=== PATIENT | female | born 1950 | race Caucasian/White ===

== ENCOUNTER → 2018-06-17 09:07 | Outpatient (CLI) | payer MEDICARE, BC, SELFPAY ==
[2018-06-17 10:17] LABS: Hemoglobin A1C% w Est Avg Glu 5.4 % (4.0-6.0)
[2018-06-17 10:27] LABS: Cholesterol 228 mg/dL (140-199); HDL Cholesterol 77 mg/dL (40-60); LDL Cholesterol Calculated 130 mg/dL (<100); Triglycerides 104 mg/dL (35-150)
[2018-06-17 10:38] LABS: Vitamin D 25 Hydroxy (D3) 39.9 ng/mL (30.0-100.0)
== END ==
PROVIDERS: Visit Provider Physician Assistant
DX: M81.0 Age-related osteoporosis without current pathological fracture (principal); R73.03 Prediabetes; E78.5 Hyperlipidemia, unspecified
CPT/HCPCS: 36415; 80061; 82306; 83036

== ENCOUNTER → 2018-12-07 14:14 | Outpatient (CLI) | payer MEDICARE, BC, SELFPAY ==
--- NOTE | 2018-12-07 | DI.CT.S_ITS ---
PROCEDURE: CT ABDOMEN PELVIS W CON INDICATIONS: RIGHT LOWER QUADRANT PAIN TECHNIQUE: After the administration of oral and intravenous contrast, 5 mm thick sections acquired from the diaphragms to the symphysis. 5 mm thick coronal and sagittal reformats were performed. For radiation dose reduction, the following was used: automated exposure control, adjustment of mA and/or kV according to patient size. COMPARISON: None. FINDINGS: Image quality: Excellent. ABDOMEN: Lung bases: There is mild linear scarring in the lung bases. Heart size is normal. Solid organs: There are 2 small cysts within the right hepatic lobe as well as multiple additional small low-density foci in the liver which are too small to characterize but likely represent cysts. Gallbladder is partially distended without calcified gallstones. Biliary system is non-dilated. Pancreas enhances normally. Spleen is normal in size and enhancement. No adrenal nodules. Kidneys demonstrate no hydronephrosis. Peritoneum and bowel: Stomach and small bowel loops are normal in caliber and wall thickness. The appendix is normal in appearance. There is colonic diverticulosis with diverticular inflammatory changes in the proximal sigmoid colon. There is associated segmental colonic wall thickening with pericolonic fat stranding. No macroscopic free air or diverticular abscess. No free fluid. No free fluid or air. Nodes and vessels: No retroperitoneal or mesenteric adenopathy. Aorta and inferior vena cava are normal in caliber. Miscellaneous: No ventral hernias. PELVIS: Genitourinary: Bladder wall thickness is normal. Miscellaneous: No inguinal hernias or adenopathy. Bones: No suspicious bony lesions. No vertebral body compression fractures. IMPRESSION: 1. Sigmoid diverticulitis without evidence of macroscopic free air or diverticular abscess. 2. No evidence of appendicitis. Findings discussed with Dr. Ortiz on 12/07/18 at 4:05 PM. Dictated by: Lucian Larsen M.D. on 12/07/2018 at 15:45 Approved by: Lucian Larsen M.D. on 12/07/2018 at 16:06
[2018-12-07 14:39] LABS: Add Manual Diff / Slide Review NO; Basophils Absolute Auto 100 /uL (0-100); Basophils Percent Auto 0.8 % (0-2); Eosinophils Absolute Auto 400 /uL (0-450); Eosinophils Percent Auto 3.2 % (2-4); Hematocrit 37.7 % (36-46); Hemoglobin 13.1 g/dL (12.0-16.0); Lymphocytes Absolute Auto 1900 /uL (1100-4500); Lymphocytes Percent Auto 16.9 % (25-40); Mean Corpuscular HGB Conc 34.7 % (30-36); Mean Corpuscular Volume 89.4 fL (80-100); Monocytes Absolute Auto 900 /uL (0-900); Monocytes Percent Auto 8.2 % (3-14); Neutrophils Absolute Auto 8100 /uL (1500-7000); Neutrophils Percent Auto 70.9 % (50-75); Platelet Count 271 X10^3/uL (150-400); Red Blood Cell Count 4.22 X10^6/uL (4.0-5.2); Red Cell Distribution Width 13.5 % (11.6-14.8); White Blood Cell Count 11.5 X10^3/uL (4.5-11.0)
[2018-12-07 14:52] LABS: Blood Urea Nitrogen 13 mg/dL (7-17); Calcium 9.7 mg/dL (8.4-10.2); Carbon Dioxide 26 mmol/L (22-32); Chloride 98 mmol/L (98-107); Estimated Glomerular Filt Rate > 60.0 mL/min (>60); Glucose 100 mg/dL (80-110); HEMOLYSIS < 15 (0-50); Potassium 4.4 mmol/L (3.4-5.1); Sodium 133 mmol/L (137-145)
== END ==
PROVIDERS: PCP Physician Assistant; Visit Provider Internal Medicine
DX: R10.31 Right lower quadrant pain (principal); K76.89 Other specified diseases of liver; K57.32 Diverticulitis of large intestine without perforation or abscess without bleeding
CPT/HCPCS: 36415; 74177; 80048; 85025; Q9967

== ENCOUNTER → 2020-04-10 14:49 | Outpatient (CLI) | payer MEDICARE, BC, SELFPAY ==
--- NOTE | 2020-04-10 | DI.RAD.S_ITS ---
PROCEDURE: XR CERVICAL SPINE 2V OR 3V INDICATIONS: CERVICALGIA TECHNIQUE: 3 view(s) of the cervical spine were acquired. 4 images. COMPARISON: None. FINDINGS: Bones: No fractures or dislocations to the C7 level. The lateral masses of C1 appear intact on the odontoid view. No suspicious bony lesions. Soft tissues: No prevertebral soft tissue swelling. IMPRESSION: Mild to moderate degenerative change of the cervical spine. Dictated by: Parker Pagan M.D. on 04/10/2020 at 15:41 Approved by: Parker Pagan M.D. on 04/10/2020 at 15:45
== END ==
PROVIDERS: PCP Physician Assistant; Referring Provider Student in an Organized Health Care Education/Training Program; Visit Provider Student in an Organized Health Care Education/Training Program
DX: M54.2 Cervicalgia (principal); M47.812 Spondylosis without myelopathy or radiculopathy, cervical region
CPT/HCPCS: 72040

== ENCOUNTER → 2020-06-18 11:43 | Outpatient (CLI) | payer MEDICARE, BC, SELFPAY ==
--- NOTE | 2020-06-18 | DI.MRI.S_ITS ---
PROCEDURE: MR CERVICAL SPINE WO CON INDICATIONS: other cervical disc degeneration TECHNIQUE: Noncontrast sagittal T1 spin echo and T2 fast spin echo, sagittal STIR, foraminal oblique sagittal T2 fast spin echo, and axial gradient echo or T2 fast spin echo through the cervical spine. COMPARISON: None. FINDINGS: Image quality: Excellent. Alignment and Curvature: Normal vertebral body alignment and height. Bone Marrow: No suspicious focal marrow signal abnormality or bone marrow edema Spinal Cord: Normal cord signal intensity. No syrinx. Regional Soft Tissues: Prevertebral and paraspinous soft tissues are unremarkable. C2-C3: No spinal canal or neural foraminal stenosis. C3-C4: Posterior disc osteophyte complex without spinal canal stenosis or mass effect upon the cord. Facet and uncovertebral hypertrophy contribute to trace neural foraminal narrowing. C4-C5: No spinal canal stenosis despite posterior disc osteophyte complex. Facet and uncovertebral hypertrophy contribute to mild bilateral neural foraminal stenosis. C5-C6: Facet and uncovertebral hypertrophy contributing to mild bilateral neural foraminal stenosis. Posterior disc-osteophyte complex without mass effect upon the cord or spinal canal stenosis. C6-C7: No spinal canal or neural foraminal stenosis. C7-T1: No spinal canal or neural foraminal stenosis. IMPRESSION: Mild degenerative changes in the midcervical spine. Dictated by: Hayes Hall M.D. on 06/18/2020 at 14:22 Approved by: Hayes Hall M.D. on 06/18/2020 at 14:24
== END ==
PROVIDERS: PCP Physician Assistant; Referring Provider Physician Assistant; Visit Provider Physician Assistant
DX: M50.30 Other cervical disc degeneration, unspecified cervical region (principal); M47.812 Spondylosis without myelopathy or radiculopathy, cervical region
CPT/HCPCS: 72141

== ENCOUNTER 2020-07-19 11:42 | Emergency (ER) | payer MEDICARE, BC, SELFPAY ==
--- NOTE | 2020-07-19 11:45 | DI.RAD.S_ITS ---
PROCEDURE: XR TOE LT MIN 2V INDICATIONS: pain, injury TECHNIQUE: Three views of the left toe(s) acquired. COMPARISON: None. FINDINGS: Bones: Spiral, mildly displaced, minimally laterally angulated fracture of the 4th proximal phalanx. No harshil dislocation but there is mild hammertoe deformity of the 2nd through 4th PIP joints.. No suspicious bony lesions. Soft tissues: No suspicious soft tissue densities. IMPRESSION: 1. Mildly angulated 4th proximal phalanx fracture. Dictated by: Vilma Rmaos M.D. on 07/19/2020 at 11:10 Approved by: Vilma Ramos M.D. on 07/19/2020 at 11:13
[2020-07-19 13:12] VITALS: BP 127/66; PULSE 89; TEMP 36.5; O2SAT 97
--- NOTE | 2020-07-19 14:50 | ED_ITS ---
HPI - Extremity Injury (Lower) <WILIAN Brown - Last Filed: 07/19/20 14:55> General Chief Complaint: Extremity Injury, Lower Stated Complaint: left foot injury Time Seen by Provider: 07/19/20 13:03 Source: patient Mode of arrival: Ambulatory Limitations: no limitations History of Present Illness HPI Narrative: The patient is a 62-year-old female nonsmoker who denies pertinent medical history who presents with a chief complaint of possible fracture to her left 4th toe. She states she accidentally kicked a bed what a hotel in [facility] at least 3 days ago or so. She states that her toe was angulated, she believes is dislocated and she tried to put it back in place. She is return emergency department nurse. She states she has been sushma taping it sounds, but she is concerned about a persistent fracture. She denies any significant pain, applied ice throughout the 1st few days, and used [id number] medications as needed and able. She denies any previous injuries to her left foot. Related Data Allergies Allergy/AdvReac Type Severity Reaction Status Date / Time meperidine [From DEMEROL] Allergy Unknown Verified 07/19/20 11:44 penicillin G [PENICILLIN G] Allergy Unknown Verified 07/19/20 11:44 Review of Systems <[facility] - Last Filed: 07/19/20 14:55> Review of Systems Narrative: GENERAL: Denies chills, fatigue, malaise, fever, sweats. HEENT: Denies sinus pain, ear pain, sore throat, difficulty swallowing, dizziness. RESPIRATORY: Denies dyspnea, cough, wheezing, hemoptysis, sputum. CARDIOVASCULAR: Denies chest pain, palpitations, orthopnea, edema, GASTROINTESTINAL: Denies nausea, vomiting, abdominal pain, diarrhea, constipation, melena. : Denies dysuria, frequency, incontinence, hematuria, urinary retention. MUSCULOSKELETAL: See HPI SKIN: See HPI NEUROLOGIC: Denies weakness, headache, numbness, change in speech, confusion, seizures, incoordination. PSYCHIATRIC: No concerning psychosocial issues. 12 point review of systems is negative except for those stated above Exam <[facility] - Last Filed: 07/19/20 14:55> Narrative Exam Narrative: GENERAL: This is a well-nourished, well-developed patient, no acute distress HEAD: Atraumatic. Normocephalic. No temporal or scalp tenderness. EYES: Pupils equal round and reactive. Extraocular motions intact. No scleral icterus. No injection or drainage. ENT: Nose without bleeding, purulent drainage or septal hematoma. Wearing a mask. Airway patent. NECK: Trachea midline. No JVD or lymphadenopathy. Supple, nontender, no meningeal signs. CARDIOVASCULAR: Regular rate RESPIRATORY: No cough. No increased respiratory effort. No accessory muscle use. EXTREMITIES: Skin exam as noted, she will flex and extend left 4th toe against light resistance. Positive left pedal pulses. Capillary refill less than 2 seconds all toes left foot. NEURO: AOx3. SKIN: Ecchymosis noted on top left foot. No laceration or abrasion noted. Initial Vital Signs Initial Vital Signs: Vital Signs Temperature 97.7 F 07/19/20 13:12 Pulse Rate 89 07/19/20 13:12 Blood Pressure 127/66 07/19/20 13:12 Pulse Oximetry 97 07/19/20 13:12 <Kay Sharpe MD - Last Filed: 07/19/20 17:45> Initial Vital Signs Initial Vital Signs: Vital Signs Temperature 97.7 F 07/19/20 13:12 Pulse Rate 89 07/19/20 13:12 Blood Pressure 127/66 07/19/20 13:12 Pulse Oximetry 97 07/19/20 13:12 Scores <RICHARD Brown - Last Filed: 07/19/20 14:55> GCS [place] coma scale eye opening: Spontaneous Anna coma scale verbal response: Orientated Anna coma scale motor response: Obey commands Anna coma scale total score: 15 Course <RICHARD Brown - Last Filed: 07/19/20 14:55> Orders Ordered: ED Orders 07/19/20 11:45 XR toe LT min 2V Stat Vital Signs Vital signs: Vital Signs - 8 hr 07/19/20 13:12 Temperature 97.7 F Pulse Rate 89 Blood Pressure 127/66 Pulse Oximetry 97 <Kay Sharpe MD - Last Filed: 07/19/20 17:45> Orders Ordered: ED Orders 07/19/20 11:45 XR toe LT min 2V Stat Vital Signs Vital signs: Vital Signs - 8 hr 07/19/20 13:12 Temperature 97.7 F Pulse Rate 89 Blood Pressure 127/66 Pulse Oximetry 97 [facility] - Extremity Injury (Lower) <WILIAN Brown - Last Filed: 07/19/20 14:55> Imaging Data Extremity x-ray #1: Radiologist's Impression: [address] [place] [id number] XRay Report Signed Patient: Es Hannah EMR#: [id number] : 2Acct:[id number] Age/Sex: 70 / FDate of Service: 07/19/20 Loc: ED Accession Number: [id number] Procedure: XR toe LT min 2V Ordering Provider: Kay Sharpe MD PROCEDURE: XR TOE LT MIN 2V INDICATIONS: pain, injury TECHNIQUE: Three views of the left toe(s) acquired. COMPARISON: None. FINDINGS: Bones: Spiral, mildly displaced, minimally laterally angulated fracture of the 4th proximal phalanx. No harshil dislocation but there is mild hammertoe deformity of the 2nd through 4th PIP joints.. No suspicious bony lesions. Soft tissues: No suspicious soft tissue densities. IMPRESSION: 1. Mildly angulated 4th proximal phalanx fracture. Dictated by: Vilma Ramos M.D. on 07/19/2020 at 11:10 Approved by: Vilma Ramos M.D. on 07/19/2020 at 11:13 [facility] Narrative Medical decision making narrative: The patient is a 62-year-old female who presents with a chief complaint of possibly fractured left 4th toe. Her x-ray does return with fracture. She is neurovascular intact her stay in the emergency department. I discussed at length rest ice compression elevation as well as [id number] pain medications as needed and able as well as follow- up with primary care provider in a few days. The patient declined to wait for sushma taping in the emergency department and left without discharge instructions. I did tell her to come back to emergency department for any acute concerns including decreased circulation to her toes. Patient has no questions or concerns upon discharge and states understanding return precautions as well as follow-up care, though did leave prior to discharge paperwork. Discharge Plan Departure Patient Disposition: Home Clinical Impression: Fracture of toe Qualifiers: Encounter type: initial encounter Toe: lesser toe Fracture type: closed Phalanx: proximal Fracture alignment: displaced Laterality: left Qualified Code(s): S92.512A - Displaced fracture of proximal phalanx of left lesser toe(s), initial encounter for closed fracture Discharge Date/Time: 07/19/20 14:02 Referrals: Maricel Vasquez PA-C [Primary Care Provider] - <Kay Sharpe MD - Last Filed: 07/19/20 17:45> Cosign ED Attending Cosignature Attestation: I was immediately available in the department for consultation throughout this patient's visit. I agree with documentation as above. Kay Sharpe MD
== END 2020-07-19 14:02 | disposition home or self-care (01) ==
PROVIDERS: Emergency Provider Nurse Practitioner Family; PCP Physician Assistant
DX: S92.512A Displaced fracture of proximal phalanx of left lesser toe(s), initial encounter for closed fracture (principal); W18.09XA Striking against other object with subsequent fall, initial encounter
CPT/HCPCS: 73660; 99281; 99283

== ENCOUNTER → 2020-09-06 08:24 | Outpatient (CLI) | payer MEDICARE, BC, SELFPAY ==
--- NOTE | 2020-09-06 | DI.RAD.S_ITS ---
PROCEDURE: XR FOOT LT MIN 3V INDICATIONS: DISPLACED FRACTURE OF PROX PHALANX OF LT LESSER TOES TECHNIQUE: 3 views of the foot were acquired. COMPARISON: [facility], CR, XR TOE LT MIN 2V, 07/19/2020, 11:35. [facility], CR, FOOT 3V LEFT, 02/14/2016, 12:24. FINDINGS: Bones: No acute fracture. Previously described fracture of the proximal phalanx of the 4th toe is healed. Achilles calcaneal spurs are present. There is a small plantar calcaneal spur. The interphalangeal joints of the toes have mild degenerative changes, unchanged. Soft tissues: No tibiotalar joint effusion. Achilles tendon appears normal. IMPRESSION: 1. Healed fracture of the proximal phalanx of the 4th toe. 3. Degenerative changes in the interphalangeal joints of the toes. Dictated by: Chris Daniels M.D. on 09/06/2020 at 8:49 Approved by: Chris Daniels M.D. on 09/06/2020 at 8:56
[2020-09-06 09:43] LABS: Add Manual Diff / Slide Review NO; Basophils Absolute Auto 0 /uL (0-100); Basophils Percent Auto 0.8 % (0-2); Eosinophils Absolute Auto 400 /uL (0-450); Eosinophils Percent Auto 6.7 % (2-4); Hematocrit 41.1 % (36-46); Hemoglobin 14.4 g/dL (12.0-16.0); Lymphocytes Absolute Auto 1000 /uL (1100-4500); Lymphocytes Percent Auto 17.8 % (25-40); Mean Corpuscular Hemoglobin 31.4 PG (26-34); Mean Corpuscular Volume 89.8 fL (80-100); Monocytes Absolute Auto 400 /uL (0-900); Neutrophils Absolute Auto 4000 /uL (1500-7000); Neutrophils Percent Auto 67.7 % (50-75); Platelet Count 315 X10^3/uL (150-400); Red Blood Cell Count 4.58 X10^6/uL (4.0-5.2); Red Cell Distribution Width 13.7 % (11.6-14.8); White Blood Cell Count 5.9 X10^3/uL (4.5-11.0)
[2020-09-06 10:06] LABS: Hemoglobin A1C% w Est Avg Glu 5.6 % (4.0-6.0)
[2020-09-06 10:12] LABS: Alanine Aminotransferase 29 IU/L (<35); Albumin 4.6 g/dL (3.5-5.0); Albumin Globulin Ratio 1.4 (1.0-2.8); Alkaline Phosphatase 72 U/L (38-126); Aspartate Aminotransferase 29 IU/L (14-36); BUN Creatinine Ratio 26.4 (6-22); Bilirubin Total 0.6 mg/dL (0.2-1.3); Blood Urea Nitrogen 14 mg/dL (7-17); C-Reactive Protein Quant 0.7 mg/dL (<1.0); Carbon Dioxide 31 mmol/L (22-32); Chloride 103 mmol/L (98-107); Cholesterol 248 mg/dL (140-199); Estimated Glomerular Filt Rate > 60.0 mL/min (>60); Globulin 3.2 g/dL (1.7-4.1); Glucose 104 mg/dL (80-110); HDL Cholesterol 84 mg/dL (40-60); HEMOLYSIS < 15 (0-50); LDL Cholesterol Calculated 134 mg/dL (<100); Magnesium 2.4 mg/dL (1.6-2.3); Potassium 4.8 mmol/L (3.4-5.1); Sodium 137 mmol/L (137-145); Total Protein 7.8 g/dL (6.3-8.2); Triglycerides 148 mg/dL (35-150)
[2020-09-06 10:20] LABS: Erythrocyte Sedimentation Rate 5 MM/HR (0-20)
[2020-09-06 10:42] LABS: TSH w/ Reflex to FT4 0.82 uIU/mL (0.47-4.68)
== END ==
PROVIDERS: PCP Physician Assistant; Referring Provider Physician Assistant; Visit Provider Physician Assistant
DX: S92.512D Displaced fracture of proximal phalanx of left lesser toe(s), subsequent encounter for fracture with routine healing (principal); L29.9 Pruritus, unspecified; E78.5 Hyperlipidemia, unspecified; R73.03 Prediabetes; R00.2 Palpitations; I49.3 Ventricular premature depolarization; R51.9 Headache, unspecified
CPT/HCPCS: 36415; 73630; 80053; 80061; 83036; 83735; 84443; 85025; 85651; 86140

== ENCOUNTER 2020-09-07 14:26 | Emergency (ER) | payer MEDICARE, BC, SELFPAY ==
[2020-09-07 14:30] VITALS: BP 138/81; PULSE 99; RESP 15; TEMP 36.9; O2SAT 100; BMI 26.3
[2020-09-07] MEDS: OXYMETAZOLINE NASAL SPRAY 15 ML 2 SPRAYS NASAL (14:59)
--- NOTE | 2020-09-07 15:36 | PC.NURSE ---
Reports first episode 1899/2099 last night. Each episode lasted 30 minutes. Then again this afternoon and decided to come in to ER. Started antibiotics yesterday for sinus infection. Using nasonex and affrin daily.
--- NOTE | 2020-09-07 16:10 | ED.EPISTAXIS ---
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 She states that this is the 3rd 1 and 16 hours, it started after she used a Q-tip with Vaseline up her nose to help moisten it. She wonders if it is dry she is being treated for sinus infection, using Afrin, Nasonex, Augmentin and Mucinex. She states that it lasted for approximately 1/2 an hour prior to arrival and stopped she was arriving to the emergency department. She is concerned that this is the 3rd episode of epistaxis in the past 16 hours or so. She denies any lightheadedness or dizziness. Related Data Allergies Allergy/AdvReac Type Severity Reaction Status Date / Time meperidine [From DEMEROL] Allergy Unknown Verified 09/07/20 14:34 penicillin G [PENICILLIN G] Allergy Unknown Verified 09/07/20 14:34 tegaderm AdvReac Uncoded 09/07/20 14:34 Review of Systems <RICHARD Brown - Last Filed: 09/07/20 18:01> Review of Systems Narrative: GENERAL: Denies chills, fatigue, malaise, fever, sweats. HEENT: See HPI RESPIRATORY: Denies dyspnea, cough, wheezing, hemoptysis, sputum. CARDIOVASCULAR: Denies chest pain, palpitations, orthopnea, edema, GASTROINTESTINAL: Denies nausea, vomiting, abdominal pain, diarrhea, constipation, melena. : Denies dysuria, frequency, incontinence, hematuria, urinary retention. MUSCULOSKELETAL: denies weakness, joint pain, or bony pain SKIN: Denies rash, skin lesions, or other NEUROLOGIC: Denies weakness, headache, numbness, change in speech, confusion, seizures, incoordination. PSYCHIATRIC: No concerning psychosocial issues. 12 point review of systems is negative except for those stated above Patient History <RICHARD Brown - Last Filed: 09/07/20 18:01> Social History Smoking Status: Unknown if ever smoked Smoking Status: Unknown if ever smoked alcohol intake frequency: holidays/special occasions only Substance Use Type: does not use Exam <RICHARD Brown - Last Filed: 09/07/20 18:01> Narrative Exam Narrative: GENERAL: This is a well-nourished, well-developed patient, in no acute distress HEAD: Atraumatic. Normocephalic. No temporal or scalp tenderness. EYES: Pupils equal round and reactive. Extraocular motions intact. No scleral icterus. No injection or drainage. ENT: Nose without bleeding, purulent drainage or septal hematoma. Throat without erythema, tonsillar hypertrophy or exudate. Uvula midline. Airway patent. No blood in oropharynx. No active nasal bleeding. Dry mucosa noted. NECK: Trachea midline. No JVD or lymphadenopathy. Supple, nontender, no meningeal signs. CARDIOVASCULAR: Regular rate and rhythm RESPIRATORY: Clear to auscultation. Breath sounds equal bilaterally. No wheezes, rales, or rhonchi. No cough. No increased respiratory effort. No accessory muscle use. BACK: Nontender without deformity or crepitance. No flank tenderness. NEURO: AOx3. SKIN: No rash or erythema. Initial Vital Signs Initial Vital Signs: Vital Signs Temperature 98.5 F 09/07/20 14:30 Pulse Rate 99 H 09/07/20 14:30 Respiratory Rate 15 09/07/20 14:30 Blood Pressure 138/81 09/07/20 14:30 Pulse Oximetry 100 09/07/20 14:30 <Yojana Riley DO - Last Filed: 09/08/20 07:42> Initial Vital Signs Initial Vital Signs: Vital Signs Temperature 98.5 F 09/07/20 14:30 Pulse Rate 99 H 09/07/20 14:30 Respiratory Rate 15 09/07/20 14:30 Blood Pressure 138/81 09/07/20 14:30 Pulse Oximetry 100 09/07/20 14:30 Scores <RICHARD Brown - Last Filed: 09/07/20 18:01> GCS [place] coma scale eye opening: Spontaneous [place] coma scale verbal response: Orientated [place] coma scale motor response: Obey commands Sat[place] coma scale total score: 15 Course <MICHEAL Brown-BC - Last Filed: 09/07/20 18:01> Orders Ordered: Discontinued Medications Oxymetazoline HCl (Nasal Decongestant) 2 sprays NASAL NOW ONE Stop: 09/07/20 14:54 Last Admin: 09/07/20 14:59 Dose: 2 sprays Documented by: BEBE Vital Signs Vital signs: Vital Signs - 8 hr 09/07/20 14:30 09/07/20 16:20 Temperature 98.5 F Pulse Rate 99 H 89 Respiratory Rate 15 Blood Pressure 138/81 122/69 Pulse Oximetry 100 99 <Yojana Riley DO - Last Filed: 09/08/20 07:42> Orders Ordered: Discontinued Medications Oxymetazoline HCl (Nasal Decongestant) 2 sprays NASAL NOW ONE Stop: 09/07/20 14:54 Last Admin: 09/07/20 14:59 Dose: 2 sprays Documented by: BEBE Vital Signs Vital signs: Vital Signs - 8 hr 09/07/20 14:30 09/07/20 16:20 Temperature 98.5 F Pulse Rate 99 H 89 Respiratory Rate 15 Blood Pressure 138/81 122/69 Pulse Oximetry 100 99 MDM - Epistaxis <WILIAN BrownBC - Last Filed: 09/07/20 18:01> MDM Narrative Medical decision making narrative: The patient is a 70-year-old female who presents with a chief complaint of recurrent nosebleeds at home. She has no active bleeding in the emergency department, she was clamped and given Afrin to ensure this. She had no recurrence of rebleeding. I discussed at length with her use of a humidifier at home, to help prevent dry mucosal membranes. I also encouraged her to not use Q-tips or anything up her nose. She initially requested that I pack her nose, but At this point given that she has no active bleeding, I will hold off on that at this point time. She denies any dizziness or lightheadedness. Given her recurrent bleeds I offered to check her labs, but she declined. Discussed at length coming back to the ER for any acute concerns such as significant bleeding etcetera. Patient has no questions or concerns upon discharge and states understanding return precautions as well as follow-up care. She has not had any return of epistaxis throughout her stay in the ER. Discharge Plan Departure Patient Disposition: Home Clinical Impression: Epistaxis Discharge Date/Time: 09/07/20 16:20 Instructions: DI for Nosebleed Activity Restrictions/Additional Instructions: Thank you for trusting us with your care today I suggest using humidifier in your living area, especially in your bedroom at night to help keep your nasal mucosa from drying out. Please do not put anything in your nose, try to avoid blowing your nose. As discussed please follow-up with primary care provider in the next few days. Please come back to the emergency department for any acute concerns. Referrals: Maricel Vasquez PA-C [Primary Care Provider] - <Yojana Riley DO - Last Filed: 09/08/20 07:42> Cosign ED Attending Keishaature Attestation: I was immediately available in the department for consultation. Documentation has been reviewed. I agree with assessment and plan.
[2020-09-07 16:20] VITALS: BP 122/69; PULSE 89; O2SAT 99
== END 2020-09-07 16:20 | disposition home or self-care (01) ==
PROVIDERS: Emergency Provider Nurse Practitioner Family; PCP Physician Assistant
DX: R04.0 Epistaxis (principal)
CPT/HCPCS: 99282; A9270

== ENCOUNTER → 2020-09-16 14:11 | Outpatient (CLI) | payer MEDICARE, BC, SELFPAY ==
--- NOTE | 2020-10-11 15:16 | P.HOLT.S_ITS ---
[employer] Report Referral & Results Date Patient Seen: 09/16/20 Requesting provider: Maricel Vasquez Indication: Palpitations Duration of monitoring (days): 7 Diary information: There were 6 patient triggered events and 5 patient diary entries Patient triggered events were associated variably with (within 45 seconds) sinus rhythm, SVT, PVCs, PACs, ventricular bigeminy, and ventricular trigeminy Patient diary events were associated variably with (within 45 seconds) sinus rhythm, ventricular bigeminy, PACs, and simple PVCs Data: Minimum heart rate identified was 57 beats per minute at 00:45 on 09/19/2020 Maximum sinus heart rate was 150 beats per minute at 11:36 on 09/19/2020 Maximum overall heart rate was 193 beats per minute at 14:20 on 09/19/2020 during a 7 beat run of SVT Less than 1% of identified beats or either ventricular supraventricular ectopic in origin Patient had 1st degree AV block noted Therefore runs of SVT the fastest being the above-mentioned run with the longest lasting 9 beats at a rate of 111 beats per minute which suggest more atrial tachycardia rather than true SVT Impression: Patient with both supraventricular and ventricular ectopy including brief runs of ventricular bigeminy and trigeminy. No clear correlation between patient's reported sense of palpitations and anyone dysrhythmia. Patient's triggered events were associated with 5 different dysrhythmias all of which are rare in frequency Clinical correlation suggested
== END ==
PROVIDERS: PCP Physician Assistant; Referring Provider Physician Assistant; Visit Provider Physician Assistant
DX: R00.2 Palpitations (principal)
CPT/HCPCS: 0296T; 0298T

== ENCOUNTER → 2020-11-19 10:54 | Outpatient (CLI) | payer MEDICARE, BC, SELFPAY ==
[2020-11-19] MEDS: COVID-19 VACC #1, MRNA(MOD) 100 MCG/0.5 ML VIAL IM (11:04)
== END ==
PROVIDERS: PCP Physician Assistant; Visit Provider Internal Medicine
DX: Z23 Encounter for immunization (principal)
CPT/HCPCS: 0011A; 91301

== ENCOUNTER → 2020-12-17 11:05 | Outpatient (CLI) | payer MEDICARE, BC, SELFPAY ==
[2020-12-17] MEDS: COVID-19 VACC #2, MRNA(MOD) 100 MCG/0.5 ML VIAL IM (11:19)
== END ==
PROVIDERS: PCP Physician Assistant; Visit Provider Internal Medicine
DX: Z23 Encounter for immunization (principal)
CPT/HCPCS: 0012A; 91301

== ENCOUNTER → 2021-02-24 14:02 | Outpatient (CLI) | payer MEDICARE, BC, SELFPAY ==
--- NOTE | 2021-02-24 14:17 | DI.CT.S_ITS ---
PROCEDURE: CT HEAD/BRAIN WO CON INDICATIONS: Dizziness and giddiness TECHNIQUE: Noncontrast 4.5 mm thick angled axial sections acquired from the foramen magnum to the vertex, with coronal and sagittal reformats. For radiation dose reduction, the following was used: automated exposure control, adjustment of mA and/or kV according to patient size. COMPARISON: None. FINDINGS: Image quality: Excellent. CSF spaces: Basal cisterns are patent. No extra-axial fluid collections. The ventricles are symmetric in size and shape. Brain: No intracranial bleeds or masses. There is cerebral volume loss for age, with resultant ventricular and sulcal prominence. There are periventricular and deep white matter chronic small vessel ischemic changes. There is intracranial internal carotid artery atherosclerosis. Skull and face: Calvarium and visualized facial bones appear intact, without suspicious lesions. Sinuses: Visualized sinuses and mastoids are clear. IMPRESSION: No acute intracranial process. Dictated by: Alec Licona M.D. on 02/24/2021 at 14:34 Approved by: Alec Licona M.D. on 02/24/2021 at 14:36
== END ==
PROVIDERS: PCP Physician Assistant; Referring Provider Physician Assistant; Visit Provider Physician Assistant
DX: R42 Dizziness and giddiness (principal)
CPT/HCPCS: 70450

== ENCOUNTER 2021-04-17 12:00 | Outpatient (RCR) | payer MEDICARE, BC, SELFPAY ==
--- NOTE | 2021-02-26 10:30 | PT.OIE ---
Current Diagnoses Vestibular neuronitis, right ear (02/26/21) Dizziness and giddiness (02/26/21) Visit Care Team Role Provider Type Maricel Vasquez PA-C Attending Provider Non-Staff Family Provider Primary Care Provider Referring Provider Specialty: Internal Medicine Address: [address] [place] [address], [id number] Email: [email or web address] Initial Evaluation PT-OP-A Visit Information Start: 02/26/21 17:41 Freq: Status: Active Protocol: Document 02/26/21 09:45 DCW (Rec: 02/26/21 17:56 DCW [id number]) Out-Patient Physical Therapy Visit Information Visit Information Visit Type Initial Evaluation Visit Start Time 09:45 Visit Stop Time 10:30 Total Visit Minutes 45 Visit Number 1 Number of ROLLER CLEANER Visits 0 Evaluation Information Evaluation Date 02/26/21 PT-OP-B Current Condition Start: 02/26/21 17:41 Freq: Status: Active Protocol: Document 02/26/21 09:45 DCW (Rec: 02/26/21 17:56 DCW [id number]) Current Condition History of Current Condition Onset Date 01/10/21 Current Complaints Fuzziness, dizziness, difficulty with fast head turns History of Current Condition Pt is a 70 year old female complaining of a two month history of spontaneous imbalance. Pt reports a fairly continuous sensation of a weird, fuzzy feeling, which has been improving, but was more of a dizziness when it first began in December. Notes she was driving from [place] to [place], and began getting very dizzy driving through [place] with the curvy roads. When we checked into the hotel, I could hardly stand. Symptoms are provoked by fast turns, riding as a passenger in a car , drying her hair, performing paperwork/computer work. Pt denies recent hearing changes, diplopia, dysarthria, discoordination, or decreased mentation/consciousness. Pt denies hx of HTN, hyperlipidemia, diabetes, arrhythmia, head trauma, seizure, migraines, CVA, anxiety/panic disorders, depression, or excessive smoking or drinking. Does find Meclizine helps with her symptoms overall. Prior Treatments and Tests Head CT: IMPRESSION: No acute intracranial process. per Alec Licona M.D. on 2020 Treatment Goals Patient/Caregiver Goals Improve stability, eliminate fuzzy, lightheaded feeling. PT-OP-C Subjective Start: 02/26/21 17:41 Freq: Status: Active Protocol: Document 02/26/21 09:45 DCW (Rec: 02/26/21 17:56 [facility] [id number]) OP-PT Subjective Patient Comments Patient Comments If I keep my head straight when I move, it doesn't bother me as much. Patient Reported Progress Improving Patient Questionnaires Dizziness Handicap Inventory DHI Score 34% PT-OP-O Vestibular Start: 02/26/21 17:41 Freq: Status: Active Protocol: Document 02/26/21 09:45 DCW (Rec: 02/26/21 17:56 [facility] [id number]) Vestibular Assessment Screening Tests Vestibular Artery Screen Negative Auditory Tests Ramos Test Within normal limits Rinne Test Negative Air Conduction Results Equal Visual Testing Smooth Pursuits Horizontal WNL Smooth Pursuits Vertical WNL Saccades Horizontal WNL Saccades Vertical WNL Heave Test Positive Right Thrust Head Positive Right Convergence Test WNL DVA (Line Degradation) 4 Positional Testing Roma-Hallpike Negative Left,Negative Right Rolling Test Negative Left,Negative Right Vestibular Function Tests Fukuda Test 55? right rotation PT-OP-Q Treatments Start: 02/26/21 17:41 Freq: Status: Active Protocol: Document 02/26/21 09:45 DCW (Rec: 02/26/21 17:56 [facility] [id number]) Neuro Re-Education Treatment Vestibular Rehabilitation Targets Details Eyes, then head between two targets Distance From Target arm length Speed as tolerated Position seated X2 Viewing Details Head and target moving opposite directions Distance From Target arm length Speed as tolerated Position seated X1 Viewing Details Head moving, still target Distance From Target arm length Speed as tolerated Position seated VOR Retraining Details Eyes and target moving together Distance From Target arm length Speed as tolerated Position seated PT-OP-T Assessment and Plan Start: 02/26/21 17:41 Freq: Status: Active Protocol: Document 02/26/21 09:45 DCW (Rec: 02/26/21 17:56 [facility] [id number]) Physical Therapy Assessment Rehab Potential Rehabilitation Potential Good Evaluation Complexity Number of Personal Factors/Comorbidities 1-2 Number of Body Systems Impaired 3 Clinical Presentation at Evaluation Unstable Impairments Impairments Balance,Functional Activities, Vestibular,Visual Motor Goals Two Impairment Pt has a 4 line degradation during DVA testing Trade Mark Examiner Goal (LTG) Pt to exhibit a two line or less degradation during DVA testing to show improved VOR function LTG Duration 04/09/21 One Impairment Pt scores 34% disability on the Dizziness Handicap Inventory Trade Mark Examiner Goal (LTG) Pt to score <15% disability on the DHI to show improved functional mobility when ambulating in the community. LTG Duration 04/09/21 Assessment Summary Assessment Pt presents with signs and symptoms consistent with a potential mild right vestibular neuritis vs labrynthitis. Pt shows decreased dynamic visual acuity, has a positive right head impulse/thrust test, and rotates 55? during the Fukuda step test. All of these are signs of unilateral vestibular hypofunction. Pt does not appear to have any hearing loss, however since her case does appear to be mild, an audiogram would likely need to be performed to fully rule out labrynthitis. Pt should respond fairly well to skilled vestibular rehabilitation focusing on VOR training, adaptation/habituation, balance training, and visual motion exercises. Physical Therapy Plan Frequency and Duration Frequency of Treatment 2x/Week Duration of Treatment 6 weeks Plan of Care Start Date 02/26/21 Plan of Care End Date 04/09/21 Therapeutic Interventions Therapeutic Interventions Balance Training,Canalithic Repositioning,Neuromuscular Re -education,Patient/Caregiver Education,Self-Care/Home Management,Therapeutic Exercises,Vestibular Rehabilitation Next Visit Focus/Plan Next Note Type Treatment Note Next Visit Plan Vestibular rehab
--- NOTE | 2021-02-26 10:31 | PT.OPPOC ---
Physical, Occupational & Speech Therapy At [facility] Current Diagnoses Vestibular neuronitis, right ear (02/26/21) Dizziness and giddiness (02/26/21) Visit Care Team Role Provider Type Maricel Vasquez PA-C Attending Provider Non-Staff Family Provider Primary Care Provider Referring Provider Specialty: Internal Medicine Address: [address] [place] [address], [facility] Email: [email or web address] Plan Of Care PT-OP-T Assessment and Plan Start: 02/26/21 17:41 Freq: Status: Active Protocol: Document 02/26/21 09:45 DCW (Rec: 02/26/21 17:56 DCW [id number]) Physical Therapy Assessment Rehab Potential Rehabilitation Potential Good Evaluation Complexity Number of Personal Factors/Comorbidities 1-2 Number of Body Systems Impaired 3 Clinical Presentation at Evaluation Unstable Impairments Impairments Balance,Functional Activities, Vestibular,Visual Motor Goals Two Impairment Pt has a 4 line degradation during DVA testing Group Home Goal (LTG) Pt to exhibit a two line or less degradation during DVA testing to show improved VOR function LTG Duration 04/09/21 One Impairment Pt scores 34% disability on the Dizziness Handicap Inventory Group Home Goal (LTG) Pt to score <15% disability on the DHI to show improved functional mobility when ambulating in the community. LTG Duration 04/09/21 Assessment Summary Assessment Pt presents with signs and symptoms consistent with a potential mild right vestibular neuritis vs labrynthitis. Pt shows decreased dynamic visual acuity, has a positive right head impulse/thrust test, and rotates 55? during the Fukuda step test. All of these are signs of unilateral vestibular hypofunction. Pt does not appear to have any hearing loss, however since her case does appear to be mild, an audiogram would likely need to be performed to fully rule out labrynthitis. Pt should respond fairly well to skilled vestibular rehabilitation focusing on VOR training, adaptation/habituation, balance training, and visual motion exercises. Physical Therapy Plan Frequency and Duration Frequency of Treatment 2x/Week Duration of Treatment 6 weeks Plan of Care Start Date 02/26/21 Plan of Care End Date 04/09/21 Therapeutic Interventions Therapeutic Interventions Balance Training,Canalithic Repositioning,Neuromuscular Re -education,Patient/Caregiver Education,Self-Care/Home Management,Therapeutic Exercises,Vestibular Rehabilitation Next Visit Focus/Plan Next Note Type Treatment Note Next Visit Plan Vestibular rehab Plan of Care Dates Plan of Care Start Date 02/26/21 Plan of Care End Date 04/09/21 Electronically Signed by: Dave Cole, MARIAA 02/27/21 0937 Please Sign and Return: I have reviewed this Plan of Care and certify that the skilled therapy services above are required to meet the patient?s needs. Physician Signature Date Printed Name and Credentials Clinical Instructor Signature Printed Name and Credentials
--- NOTE | 2021-02-28 08:40 | PT.OTN ---
Current Diagnoses Vestibular neuronitis, right ear (02/28/21) Dizziness and giddiness (02/28/21) Physical Therapy Treatment Note PT-OP-A Visit Information Start: 02/26/21 17:41 Freq: Status: Active Protocol: Document 02/28/21 08:00 AMB (Rec: 02/28/21 08:36 AMB [id number]) Out-Patient Physical Therapy Visit Information Visit Information Visit Type Treatment Note Visit Start Time 08:00 Visit Stop Time 08:45 Total Visit Minutes 45 Visit Number 2 PT-OP-B Current Condition Start: 02/26/21 17:41 Freq: Status: Active Protocol: Document 02/26/21 09:45 DCW (Rec: 02/26/21 17:56 DCW [id number]) Current Condition History of Current Condition Onset Date 01/10/21 Current Complaints Fuzziness, dizziness, difficulty with fast head turns History of Current Condition Pt is a 70 year old female complaining of a two month history of spontaneous imbalance. Pt reports a fairly continuous sensation of a weird, fuzzy feeling, which has been improving, but was more of a dizziness when it first began in December. Notes she was driving from [place] to [place], and began getting very dizzy driving through [place] with the curvy roads. When we checked into the hotel, I could hardly stand. Symptoms are provoked by fast turns, riding as a passenger in a car , drying her hair, performing paperwork/computer work. Pt denies recent hearing changes, diplopia, dysarthria, discoordination, or decreased mentation/consciousness. Pt denies hx of HTN, hyperlipidemia, diabetes, arrhythmia, head trauma, seizure, migraines, CVA, anxiety/panic disorders, depression, or excessive smoking or drinking. Does find Meclizine helps with her symptoms overall. Prior Treatments and Tests Head CT: MPRESSION: No acute intracranial process. Steven Licona M.D. on 2020 Treatment Goals Patient/Caregiver Goals Improve stability, eliminate fuzzy, lightheaded feeling. PT-OP-C Subjective Start: 02/26/21 17:41 Freq: Status: Active Protocol: Document 02/28/21 08:00 AMB (Rec: 02/28/21 08:36 AMB [id number]) OP-PT Subjective Patient Comments Patient Comments Wondering if doing HEP correctly PT-OP-O Vestibular Start: 02/26/21 17:41 Freq: Status: Active Protocol: Document 02/26/21 09:45 DCW (Rec: 02/26/21 17:56 DCW [id number]) Vestibular Assessment Screening Tests Vestibular Artery Screen Negative Auditory Tests Ramos Test Within normal limits Rinne Test Negative Air Conduction Results Equal Visual Testing Smooth Pursuits Horizontal WNL Smooth Pursuits Vertical WNL Saccades Horizontal WNL Saccades Vertical WNL Heave Test Positive Right Thrust Head Positive Right Convergence Test WNL DVA (Line Degradation) 4 Positional Testing Roma-Hallpike Negative Left,Negative Right Rolling Test Negative Left,Negative Right Vestibular Function Tests Fukuda Test 55? right rotation PT-OP-Q Treatments Start: 02/26/21 17:41 Freq: Status: Active Protocol: Document 02/28/21 08:00 AMB (Rec: 02/28/21 08:36 AMB [id number]) Gym Equipment Shuttle Balance 1 Details BLUE Comments X1 training at 10' Neuro Re-Education Treatment Vestibular Rehabilitation Targets Details Eyes, then head between two targets Distance From Target 5' Speed as tolerated Position standing NBOS X2 Viewing Details Head and target moving opposite directions Distance From Target arm length Speed as tolerated Position seated X1 Viewing Details Head moving, still target Distance From Target 5' up 45bpm was blurry Speed as tolerated Position standing NBOS, then stride stance Comments added foam which pt tolerated easily VOR Retraining Details Eyes and target moving together Distance From Target arm length Speed as tolerated Position standing PT-OP-T Assessment and Plan Start: 02/26/21 17:41 Freq: Status: Active Protocol: Document 02/28/21 08:00 AMB (Rec: 02/28/21 08:36 AMB [id number]) Physical Therapy Assessment Goals Two Impairment Pt has a 4 line degradation during DVA testing Ocean Fishing Guide Goal (LTG) Pt to exhibit a two line or less degradation during DVA testing to show improved VOR function LTG Duration 04/09/21 One Impairment Pt scores 34% disability on the Dizziness Handicap Inventory Fpc Goal (LTG) Pt to score <15% disability on the DHI to show improved functional mobility when ambulating in the community. LTG Duration 04/09/21 Assessment Summary Assessment Reviewed pt's HEP as pt had questions and was mixing a few together. Encouraged that she can practice VOR at distance if it is challenging considering her near vision challenges. Would recommend increasing practice to multiple times per day. Physical Therapy Plan Next Visit Focus/Plan Next Visit Plan Progress VOR exercises into standing/unstable surfaces.
--- NOTE | 2021-03-04 09:59 | PT.OTN ---
Current Diagnoses Vestibular neuronitis, right ear (03/04/21) Dizziness and giddiness (03/04/21) Physical Therapy Treatment Note PT-OP-A Visit Information Start: 02/26/21 17:41 Freq: Status: Active Protocol: Document 03/04/21 08:15 AMB (Rec: 03/04/21 09:09 AMB [id number]) Out-Patient Physical Therapy Visit Information Visit Information Visit Type Treatment Note Visit Note Pt arrived 15 min late Visit Start Time 08:30 Visit Stop Time 09:15 Total Visit Minutes 45 Visit Number 3 PT-OP-B Current Condition Start: 02/26/21 17:41 Freq: Status: Active Protocol: Document 02/26/21 09:45 DCW (Rec: 02/26/21 17:56 DCW [id number]) Current Condition History of Current Condition Onset Date 01/10/21 Current Complaints Fuzziness, dizziness, difficulty with fast head turns History of Current Condition Pt is a 70 year old female complaining of a two month history of spontaneous imbalance. Pt reports a fairly continuous sensation of a weird, fuzzy feeling, which has been improving, but was more of a dizziness when it first began in December. Notes she was driving from [place] to [place], and began getting very dizzy driving through [place] with the curvy roads. When we checked into the hotel, I could hardly stand. Symptoms are provoked by fast turns, riding as a passenger in a car , drying her hair, performing paperwork/computer work. Pt denies recent hearing changes, diplopia, dysarthria, discoordination, or decreased mentation/consciousness. Pt denies hx of HTN, hyperlipidemia, diabetes, arrhythmia, head trauma, seizure, migraines, CVA, anxiety/panic disorders, depression, or excessive smoking or drinking. Does find Meclizine helps with her symptoms overall. Prior Treatments and Tests Head CT: MPRESSION: No acute intracranial process. Steven Licona M.D. on 2020 Treatment Goals Patient/Caregiver Goals Improve stability, eliminate fuzzy, lightheaded feeling. PT-OP-C Subjective Start: 02/26/21 17:41 Freq: Status: Active Protocol: Document 03/04/21 08:15 AMB (Rec: 03/04/21 09:09 AMB [id number]) OP-PT Subjective Patient Comments Patient Comments Pt reports she was fairly wiped out for the whole day after going to PT PT-OP-O Vestibular Start: 02/26/21 17:41 Freq: Status: Active Protocol: Document 02/26/21 09:45 DCW (Rec: 02/26/21 17:56 DCW [id number]) Vestibular Assessment Screening Tests Vestibular Artery Screen Negative Auditory Tests Ramos Test Within normal limits Rinne Test Negative Air Conduction Results Equal Visual Testing Smooth Pursuits Horizontal WNL Smooth Pursuits Vertical WNL Saccades Horizontal WNL Saccades Vertical WNL Heave Test Positive Right Thrust Head Positive Right Convergence Test WNL DVA (Line Degradation) 4 Positional Testing [place]-Hallpike Negative Left,Negative Right Rolling Test Negative Left,Negative Right Vestibular Function Tests Fukuda Test 55? right rotation PT-OP-Q Treatments Start: 02/26/21 17:41 Freq: Status: Active Protocol: Document 03/04/21 08:15 AMB (Rec: 03/04/21 09:09 AMB [id number]) Gym Equipment Shuttle Balance 1 Details BLUE Comments head turns Neuro Re-Education Treatment Vestibular Rehabilitation Targets Details Eyes, then head between two targets Distance From Target 5' Speed as tolerated Position standing NBOS X2 Viewing Details Head and target moving opposite directions Distance From Target arm length Speed as tolerated Position seated X1 Viewing Details Head moving, still target Distance From Target 5' up 45bpm was blurry Speed as tolerated Position standing NBOS, then stride stance VOR Retraining Details Eyes and target moving together Distance From Target arm length Speed as tolerated Position standing Other Activities 1 Details hallway walking Comments walking with head turns- horizontal and vertical, horizontal most challenging PT-OP-T Assessment and Plan Start: 02/26/21 17:41 Freq: Status: Active Protocol: Document 03/04/21 09:58 AMB (Rec: 03/04/21 09:59 AMB [id number]) Physical Therapy Assessment Goals Two Impairment Pt has a 4 line degradation during DVA testing Rn Icu Goal (LTG) Pt to exhibit a two line or less degradation during DVA testing to show improved VOR function LTG Duration 04/09/21 One Impairment Pt scores 34% disability on the Dizziness Handicap Inventory Skilled Nursing Goal (LTG) Pt to score <15% disability on the DHI to show improved functional mobility when ambulating in the community. LTG Duration 04/09/21 Assessment Summary Assessment did not progress sE's exercises today as she is now off meclizine and is experiencing more symptoms with exercise. Discussed upcoming boating weekend and accommodations she should make for vertigo. Physical Therapy Plan Frequency and Duration Frequency of Treatment 2x/Week Duration of Treatment 6 weeks Plan of Care Start Date 02/26/21 Plan of Care End Date 04/09/21 Therapeutic Interventions Therapeutic Interventions Balance Training,Canalithic Repositioning,Neuromuscular Re -education,Patient/Caregiver Education,Self-Care/Home Management,Therapeutic Exercises,Vestibular Rehabilitation Next Visit Focus/Plan Next Visit Plan Progress VOR exercises into standing/unstable surfaces.
--- NOTE | 2021-03-10 10:05 | PT.OTN ---
Current Diagnoses Vestibular neuronitis, right ear (03/10/21) Dizziness and giddiness (03/10/21) Physical Therapy Treatment Note PT-OP-A Visit Information Start: 02/26/21 17:41 Freq: Status: Active Protocol: Document 03/10/21 09:01 AMB (Rec: 03/10/21 10:05 AMB [id number]) Out-Patient Physical Therapy Visit Information Visit Information Visit Type Treatment Note Visit Start Time 09:00 Visit Stop Time 09:45 Total Visit Minutes 45 Visit Number 4 PT-OP-B Current Condition Start: 02/26/21 17:41 Freq: Status: Active Protocol: Document 02/26/21 09:45 DCW (Rec: 02/26/21 17:56 DCW [id number]) Current Condition History of Current Condition Onset Date 01/10/21 Current Complaints Fuzziness, dizziness, difficulty with fast head turns History of Current Condition Pt is a 70 year old female complaining of a two month history of spontaneous imbalance. Pt reports a fairly continuous sensation of a weird, fuzzy feeling, which has been improving, but was more of a dizziness when it first began in December. Notes she was driving from [place] to [place], and began getting very dizzy driving through [place] with the curvy roads. When we checked into the hotel, I could hardly stand. Symptoms are provoked by fast turns, riding as a passenger in a car , drying her hair, performing paperwork/computer work. Pt denies recent hearing changes, diplopia, dysarthria, discoordination, or decreased mentation/consciousness. Pt denies hx of HTN, hyperlipidemia, diabetes, arrhythmia, head trauma, seizure, migraines, CVA, anxiety/panic disorders, depression, or excessive smoking or drinking. Does find Meclizine helps with her symptoms overall. Prior Treatments and Tests Head CT: MPRESSION: No acute intracranial process. Steven Licona M.D. on 2020 Treatment Goals Patient/Caregiver Goals Improve stability, eliminate fuzzy, lightheaded feeling. PT-OP-C Subjective Start: 02/26/21 17:41 Freq: Status: Active Protocol: Document 03/10/21 09:01 AMB (Rec: 03/10/21 10:05 AMB [id number]) OP-PT Subjective Patient Comments Patient Comments Pt did exercises last night and they seemed a little bit easier. Did notice some spinning when out hiking [place] the [place] on [place] and looking diagonally and then out at the water. PT-OP-O Vestibular Start: 02/26/21 17:41 Freq: Status: Active Protocol: Document 02/26/21 09:45 DCW (Rec: 02/26/21 17:56 DCW [id number]) Vestibular Assessment Screening Tests Vestibular Artery Screen Negative Auditory Tests Ramos Test Within normal limits Rinne Test Negative Air Conduction Results Equal Visual Testing Smooth Pursuits Horizontal WNL Smooth Pursuits Vertical WNL Saccades Horizontal WNL Saccades Vertical WNL Heave Test Positive Right Thrust Head Positive Right Convergence Test WNL DVA (Line Degradation) 4 Positional Testing Roma-Hallpike Negative Left,Negative Right Rolling Test Negative Left,Negative Right Vestibular Function Tests Fukuda Test 55? right rotation PT-OP-Q Treatments Start: 02/26/21 17:41 Freq: Status: Active Protocol: Document 03/10/21 09:01 AMB (Rec: 03/10/21 10:05 AMB [id number]) Neuro Re-Education Treatment Vestibular Rehabilitation Targets Details Eyes, then head between two targets Distance From Target 5' Speed as tolerated Position standing NBOS X1 Viewing Details Head moving, still target Distance From Target arm length, then 5' Speed as tolerated Position standing NBOS, then stride stance Comments NBOS then stride stance. Then NBOS on blue foam with plaid background VOR Retraining Details Eyes and target moving together Distance From Target arm length Speed as tolerated Position standing Other Activities 1 Details hallway walking Reps/Duration 10 min with breaks Comments walking with head turns- horizontal, vertical, diagonal PT-OP-T Assessment and Plan Start: 02/26/21 17:41 Freq: Status: Active Protocol: Document 03/10/21 09:01 AMB (Rec: 03/10/21 10:05 AMB [id number]) Physical Therapy Assessment Assessment Summary Assessment Es overall tolerated increased challenge of exercises well. Gave walking in hallway with diagonal head turns as HEP. Encouraged more challenging backgrounds and stances as tolerated at home. Physical Therapy Plan Frequency and Duration Frequency of Treatment 2x/Week Duration of Treatment 6 weeks Plan of Care Start Date 02/26/21 Plan of Care End Date 04/09/21 Therapeutic Interventions Therapeutic Interventions Balance Training,Canalithic Repositioning,Neuromuscular Re -education,Patient/Caregiver Education,Self-Care/Home Management,Therapeutic Exercises,Vestibular Rehabilitation Next Visit Focus/Plan Next Visit Plan Progress VOR exercises into standing/unstable surfaces.
--- NOTE | 2021-03-17 10:31 | PT.OTN ---
Current Diagnoses Vestibular neuronitis, right ear (03/17/21) Dizziness and giddiness (03/17/21) Physical Therapy Treatment Note PT-OP-A Visit Information Start: 02/26/21 17:41 Freq: Status: Active Protocol: Document 03/17/21 09:45 DCW (Rec: 03/17/21 10:31 DCW [id number]) Out-Patient Physical Therapy Visit Information Visit Information Visit Type Treatment Note Visit Start Time 09:45 Visit Stop Time 10:30 Total Visit Minutes 45 Visit Number 5 Evaluation Information Evaluation Date 02/26/21 PT-OP-B Current Condition Start: 02/26/21 17:41 Freq: Status: Active Protocol: Document 02/26/21 09:45 DCW (Rec: 02/26/21 17:56 DCW [id number]) Current Condition History of Current Condition Onset Date 01/10/21 Current Complaints Fuzziness, dizziness, difficulty with fast head turns History of Current Condition Pt is a 70 year old female complaining of a two month history of spontaneous imbalance. Pt reports a fairly continuous sensation of a weird, fuzzy feeling, which has been improving, but was more of a dizziness when it first began in December. Notes she was driving from [place] to [place], and began getting very dizzy driving through [place] with the curvy roads. When we checked into the hotel, I could hardly stand. Symptoms are provoked by fast turns, riding as a passenger in a car , drying her hair, performing paperwork/computer work. Pt denies recent hearing changes, diplopia, dysarthria, discoordination, or decreased mentation/consciousness. Pt denies hx of HTN, hyperlipidemia, diabetes, arrhythmia, head trauma, seizure, migraines, CVA, anxiety/panic disorders, depression, or excessive smoking or drinking. Does find Meclizine helps with her symptoms overall. Prior Treatments and Tests Head CT: MPRESSION: No acute intracranial process. Steven Licona M.D. on 2020 Treatment Goals Patient/Caregiver Goals Improve stability, eliminate fuzzy, lightheaded feeling. PT-OP-C Subjective Start: 02/26/21 17:41 Freq: Status: Active Protocol: Document 03/17/21 09:45 DCW (Rec: 03/17/21 10:31 DCW [id number]) OP-PT Subjective Patient Comments Patient Comments I'm getting better, but I am a little more dizzy today. PT-OP-O Vestibular Start: 02/26/21 17:41 Freq: Status: Active Protocol: Document 02/26/21 09:45 DCW (Rec: 02/26/21 17:56 DCW [id number]) Vestibular Assessment Screening Tests Vestibular Artery Screen Negative Auditory Tests Ramos Test Within normal limits Rinne Test Negative Air Conduction Results Equal Visual Testing Smooth Pursuits Horizontal WNL Smooth Pursuits Vertical WNL Saccades Horizontal WNL Saccades Vertical WNL Heave Test Positive Right Thrust Head Positive Right Convergence Test WNL DVA (Line Degradation) 4 Positional Testing [place]-Hallpike Negative Left,Negative Right Rolling Test Negative Left,Negative Right Vestibular Function Tests Fukuda Test 55? right rotation PT-OP-Q Treatments Start: 02/26/21 17:41 Freq: Status: Active Protocol: Document 03/17/21 09:45 DCW (Rec: 03/17/21 10:31 DCW [id number]) Gym Equipment Shuttle Balance 1 Details Blue Comments EO/EC, X1 Viewing Neuro Re-Education Treatment Balance Activities 2 Details EC turns to target 1 Details Ball/cone transfers Vestibular Rehabilitation 1 Details Laser targeting Comments Signing name, diagonals to metronome (120 bpm) Targets Details Eyes, then head between two targets Distance From Target 5' Speed as tolerated Position standing NBOS X1 Viewing Details Head moving, still target Background floral visual board Distance From Target 8 Speed as tolerated Position standing NBOS, then stride stance Comments NBOS then stride stance. Then NBOS on blue foam with plaid background Other Activities 1 Details hallway walking Reps/Duration 10 min with breaks Comments walking with head turns- horizontal, vertical, diagonal , 129 bpm metronome PT-OP-T Assessment and Plan Start: 02/26/21 17:41 Freq: Status: Active Protocol: Document 03/17/21 09:45 DCW (Rec: 03/17/21 10:31 DCW [id number]) Physical Therapy Assessment Impairments Impairments Balance,Functional Activities, Vestibular,Visual Motor Goals Two Impairment Pt has a 4 line degradation during DVA testing Carver Hand Goal (LTG) Pt to exhibit a two line or less degradation during DVA testing to show improved VOR function LTG Duration 04/09/21 One Impairment Pt scores 34% disability on the Dizziness Handicap Inventory Carver Hand Goal (LTG) Pt to score <15% disability on the DHI to show improved functional mobility when ambulating in the community. LTG Duration 04/09/21 Assessment Summary Assessment Pt making good overall improvement, has been compliant with her HEP. Pt interested in attending her appointment Wednesday, and then scheduling a follow-up in 2-3 weeks to ensure she is continuing to progress. Physical Therapy Plan Frequency and Duration Frequency of Treatment 2x/Week Duration of Treatment 6 weeks Plan of Care Start Date 02/26/21 Plan of Care End Date 04/09/21 Therapeutic Interventions Therapeutic Interventions Balance Training,Canalithic Repositioning,Neuromuscular Re -education,Patient/Caregiver Education,Self-Care/Home Management,Therapeutic Exercises,Vestibular Rehabilitation Next Visit Focus/Plan Next Visit Plan Progress VOR exercises into standing/unstable surfaces.
--- NOTE | 2021-03-19 10:26 | PT.OTN ---
Current Diagnoses Vestibular neuronitis, right ear (03/19/21) Dizziness and giddiness (03/19/21) Physical Therapy Treatment Note PT-OP-A Visit Information Start: 02/26/21 17:41 Freq: Status: Active Protocol: Document 03/19/21 09:45 DCW (Rec: 03/19/21 10:26 DCW [id number]) Out-Patient Physical Therapy Visit Information Visit Information Visit Type Treatment Note Visit Start Time 09:45 Visit Stop Time 10:30 Total Visit Minutes 45 Visit Number 6 Evaluation Information Evaluation Date 02/26/21 PT-OP-B Current Condition Start: 02/26/21 17:41 Freq: Status: Active Protocol: Document 02/26/21 09:45 DCW (Rec: 02/26/21 17:56 DCW [id number]) Current Condition History of Current Condition Onset Date 01/10/21 Current Complaints Fuzziness, dizziness, difficulty with fast head turns History of Current Condition Pt is a 70 year old female complaining of a two month history of spontaneous imbalance. Pt reports a fairly continuous sensation of a weird, fuzzy feeling, which has been improving, but was more of a dizziness when it first began in December. Notes she was driving from [place] to [place], and began getting very dizzy driving through [place] with the curvy roads. When we checked into the hotel, I could hardly stand. Symptoms are provoked by fast turns, riding as a passenger in a car , drying her hair, performing paperwork/computer work. Pt denies recent hearing changes, diplopia, dysarthria, discoordination, or decreased mentation/consciousness. Pt denies hx of HTN, hyperlipidemia, diabetes, arrhythmia, head trauma, seizure, migraines, CVA, anxiety/panic disorders, depression, or excessive smoking or drinking. Does find Meclizine helps with her symptoms overall. Prior Treatments and Tests Head CT: MPRESSION: No acute intracranial process. Steven Licona M.D. on 2020 Treatment Goals Patient/Caregiver Goals Improve stability, eliminate fuzzy, lightheaded feeling. PT-OP-C Subjective Start: 02/26/21 17:41 Freq: Status: Active Protocol: Document 03/19/21 09:45 DCW (Rec: 03/19/21 10:26 DCW [id number]) OP-PT Subjective Patient Comments Patient Comments I'm feeling better than I was the other day. PT-OP-O Vestibular Start: 02/26/21 17:41 Freq: Status: Active Protocol: Document 02/26/21 09:45 DCW (Rec: 02/26/21 17:56 DCW [id number]) Vestibular Assessment Screening Tests Vestibular Artery Screen Negative Auditory Tests Ramos Test Within normal limits Rinne Test Negative Air Conduction Results Equal Visual Testing Smooth Pursuits Horizontal WNL Smooth Pursuits Vertical WNL Saccades Horizontal WNL Saccades Vertical WNL Heave Test Positive Right Thrust Head Positive Right Convergence Test WNL DVA (Line Degradation) 4 Positional Testing [place]-Hallpike Negative Left,Negative Right Rolling Test Negative Left,Negative Right Vestibular Function Tests Fukuda Test 55? right rotation PT-OP-Q Treatments Start: 02/26/21 17:41 Freq: Status: Active Protocol: Document 03/19/21 09:45 DCW (Rec: 03/19/21 10:26 DCW [id number]) Gym Equipment Shuttle Balance 1 Details Blue Comments EO/EC, X1 Viewing, Staggered Neuro Re-Education Treatment Balance Activities 3 Details Hurdles 2 Details EC turns to target Vestibular Rehabilitation Other- 1 Details Visual targeting tennis ball 1 Details Laser targeting Comments Signing name, diagonals to metronome (120 bpm) X1 Viewing Details Head moving, still target Background floral visual board Distance From Target 8 Speed as tolerated Position standing NBOS, then stride stance Comments NBOS then tandem stance. Other Activities 1 Details hallway walking Reps/Duration 10 min with breaks Comments walking with head turns- horizontal, vertical, diagonal , 120 bpm metronome PT-OP-T Assessment and Plan Start: 02/26/21 17:41 Freq: Status: Active Protocol: Document 03/19/21 09:45 DCW (Rec: 03/19/21 10:26 DCW [id number]) Physical Therapy Assessment Impairments Impairments Balance,Functional Activities, Vestibular,Visual Motor Goals Two Impairment Pt has a 4 line degradation during DVA testing Software Support Analyst Goal (LTG) Pt to exhibit a two line or less degradation during DVA testing to show improved VOR function LTG Duration 04/09/21 One Impairment Pt scores 34% disability on the Dizziness Handicap Inventory Software Support Analyst Goal (LTG) Pt to score <15% disability on the DHI to show improved functional mobility when ambulating in the community. LTG Duration 04/09/21 Assessment Summary Assessment Pt still having a bit of a struggle with her fast head turns at 2 Hz, however otherwise is doing much better , actually shows a noticeable improvement in thrust/heave testing. Physical Therapy Plan Frequency and Duration Frequency of Treatment 2x/Week Duration of Treatment 6 weeks Plan of Care Start Date 02/26/21 Plan of Care End Date 04/09/21 Therapeutic Interventions Therapeutic Interventions Balance Training,Canalithic Repositioning,Neuromuscular Re -education,Patient/Caregiver Education,Self-Care/Home Management,Therapeutic Exercises,Vestibular Rehabilitation Next Visit Focus/Plan Next Visit Plan Progress VOR exercises into standing/unstable surfaces.
--- NOTE | 2021-04-17 12:24 | PT.OTN ---
Current Diagnoses Vestibular neuronitis, right ear (04/17/21) Dizziness and giddiness (04/17/21) Physical Therapy Treatment Note PT-OP-A Visit Information Start: 02/26/21 17:41 Freq: Status: Active Protocol: Document 04/17/21 12:02 DCW (Rec: 04/17/21 12:24 DCW [id number]) Out-Patient Physical Therapy Visit Information Visit Information Visit Type Discharge Summary Visit Start Time 12:02 Visit Stop Time 12:20 Total Visit Minutes 18 Visit Number 7 Evaluation Information Evaluation Date 02/26/21 PT-OP-B Current Condition Start: 02/26/21 17:41 Freq: Status: Active Protocol: Document 02/26/21 09:45 DCW (Rec: 02/26/21 17:56 DCW [id number]) Current Condition History of Current Condition Onset Date 01/10/21 Current Complaints Fuzziness, dizziness, difficulty with fast head turns History of Current Condition Pt is a 70 year old female complaining of a two month history of spontaneous imbalance. Pt reports a fairly continuous sensation of a weird, fuzzy feeling, which has been improving, but was more of a dizziness when it first began in December. Notes she was driving from [place] to [place], and began getting very dizzy driving through [place] with the curvy roads. When we checked into the hotel, I could hardly stand. Symptoms are provoked by fast turns, riding as a passenger in a car , drying her hair, performing paperwork/computer work. Pt denies recent hearing changes, diplopia, dysarthria, discoordination, or decreased mentation/consciousness. Pt denies hx of HTN, hyperlipidemia, diabetes, arrhythmia, head trauma, seizure, migraines, CVA, anxiety/panic disorders, depression, or excessive smoking or drinking. Does find Meclizine helps with her symptoms overall. Prior Treatments and Tests Head CT: MPRESSION: No acute intracranial process. Steven Licona M.D. on 2020 Treatment Goals Patient/Caregiver Goals Improve stability, eliminate fuzzy, lightheaded feeling. PT-OP-C Subjective Start: 02/26/21 17:41 Freq: Status: Active Protocol: Document 04/17/21 12:02 DCW (Rec: 04/17/21 12:24 DCW [id number]) OP-PT Subjective Patient Comments Patient Comments Overall day-to-day has been better. We've been really busy and had a number of long days , and I've been pretty good. I went clothes shopping yesterday, and felt a little off. PT-OP-O Vestibular Start: 02/26/21 17:41 Freq: Status: Active Protocol: Document 04/17/21 12:02 DCW (Rec: 04/17/21 12:24 DCW [id number]) Vestibular Assessment Visual Testing Heave Test Positive Right Thrust Head Positive Right DVA (Line Degradation) 1 PT-OP-Q Treatments Start: 02/26/21 17:41 Freq: Status: Active Protocol: Document 04/17/21 12:02 DCW (Rec: 04/17/21 12:24 DCW [id number]) Neuro Re-Education Treatment Balance Activities 1 Details Testing PT-OP-T Assessment and Plan Start: 02/26/21 17:41 Freq: Status: Active Protocol: Document 04/17/21 12:02 DCW (Rec: 04/17/21 12:24 DCW [id number]) Physical Therapy Assessment Impairments Impairments Balance,Functional Activities, Vestibular,Visual Motor Goals Two Impairment Pt has a 4 line degradation during DVA testing Pattern Maker Programer Goal (LTG) Pt to exhibit a two line or less degradation during DVA testing to show improved VOR function LTG Duration Met One Impairment Pt scores 34% disability on the Dizziness Handicap Inventory Pattern Maker Programer Goal (LTG) Pt to score <15% disability on the DHI to show improved functional mobility when ambulating in the community. LTG Duration 04/09/21 Assessment Summary Assessment Pt feeling much more confident with current level of function. Admits to increased symptoms when tired, but feels with continued use of HEP and time, she will get back to close to her normal function. Pt feels she is appropriate for discharge at time time. Physical Therapy Plan Frequency and Duration Frequency of Treatment 1x/Week Duration of Treatment 1 day Plan of Care Start Date 04/17/21 Plan of Care End Date 04/18/21 Therapeutic Interventions Therapeutic Interventions Balance Training,Canalithic Repositioning,Neuromuscular Re -education,Patient/Caregiver Education,Self-Care/Home Management,Therapeutic Exercises,Vestibular Rehabilitation Discharge Physical Therapy Discharge Reasons Goals Met Next Visit Focus/Plan Next Note Type Discharge Summary
--- NOTE | 2021-04-17 12:25 | PT.OPPOC ---
Physical, Occupational & Speech Therapy At [facility] Current Diagnoses Vestibular neuronitis, right ear (04/17/21) Dizziness and giddiness (04/17/21) Visit Care Team Role Provider Type Maricel Vasquez PA-C Attending Provider Non-Staff Family Provider Primary Care Provider Referring Provider Specialty: Internal Medicine Address: [address] [place] [address], [facility] Email: [email or web address] Of Care PT-OP-T Assessment and Plan Start: 02/26/21 17:41 Freq: Status: Active Protocol: Document 04/17/21 12:02 DCW (Rec: 04/17/21 12:24 DCW [id number]) Physical Therapy Assessment Impairments Impairments Balance,Functional Activities, Vestibular,Visual Motor Goals Two Impairment Pt has a 4 line degradation during DVA testing Half-Way Goal (LTG) Pt to exhibit a two line or less degradation during DVA testing to show improved VOR function LTG Duration Met One Impairment Pt scores 34% disability on the Dizziness Handicap Inventory Gold And Silver Assayer Goal (LTG) Pt to score <15% disability on the DHI to show improved functional mobility when ambulating in the community. LTG Duration 04/09/21 Assessment Summary Assessment Pt feeling much more confident with current level of function. Admits to increased symptoms when tired, but feels with continued use of HEP and time, she will get back to close to her normal function. Pt feels she is appropriate for discharge at time time. Physical Therapy Plan Frequency and Duration Frequency of Treatment 1x/Week Duration of Treatment 1 day Plan of Care Start Date 04/17/21 Plan of Care End Date 04/18/21 Therapeutic Interventions Therapeutic Interventions Balance Training,Canalithic Repositioning,Neuromuscular Re -education,Patient/Caregiver Education,Self-Care/Home Management,Therapeutic Exercises,Vestibular Rehabilitation Discharge Physical Therapy Discharge Reasons Goals Met Next Visit Focus/Plan Next Note Type Discharge Summary Plan of Care Dates Plan of Care Start Date 04/17/21 Plan of Care End Date 04/18/21 Electronically Signed by: Dave Cole, PT 04/17/21 [id number] Please Sign and Return: I have reviewed this Plan of Care and certify that the skilled therapy services above are required to meet the patient?s needs. Physician Signature Date Printed Name and Credentials Clinical Instructor Signature Printed Name and Credentials
== END 2021-04-21 08:59 | disposition home or self-care (01) ==
LOC: PHYS 12:00
PROVIDERS: Family Provider Physician Assistant; PCP Physician Assistant; Referring Provider Physician Assistant; Visit Provider Physician Assistant
DX: H81.21 Vestibular neuronitis, right ear (principal)
CPT/HCPCS: 97112; 97161

== ENCOUNTER → 2025-03-21 09:22 | Outpatient (CLI) | payer MEDICARE, BC, SELFPAY ==
[2025-03-21 11:08] LABS: Calcium 10.1 mg/dL (8.4-10.2)
[2025-03-21 11:24] LABS: Vitamin D 25 Hydroxy (D3) 50.7 ng/mL (30.0-100.0)
[2025-03-22 07:09] LABS: Parathyroid Hormone Int 96 pg/mL (15-65)
== END ==
PROVIDERS: Family Provider Physician Assistant; PCP Physician Assistant
DX: E21.0 Primary hyperparathyroidism (principal)
CPT/HCPCS: 36415; 82306; 82310; 83970